=== PATIENT | female | born 1955 | race Caucasian/White ===

== ENCOUNTER → 2016-08-29 | Outpatient (CLI) | payer OTHER ==
[~2016-08-29] MED LIST: FEXOFENADINE; HCTZ; LRT5 PO; SIMVASTIN
[2016-08-29 09:45] LABS: ESTIMATED AVERAGE GLUCOSE 117 mg/dl; HA1C FLAG Normal (Normal)
[2016-08-29 09:46] LABS: BLOOD UREA NITROGEN 24 mg/dl (7-18); BUN/CREATININE RATIO 30.6 (10-20); CALCIUM 9.3 mg/dl (8.5-10.1); CARBON DIOXIDE 29 mmol/L (21-32); CHLORIDE 105 mmol/L (98-107); CHOLESTEROL 176 mg/dl (0-200); CREATININE 0.78 mg/dl (0.60-1.20); GLUCOSE 102 mg/dl (70-99); POTASSIUM 3.9 mmol/L (3.5-5.1); SODIUM 143 mmol/L (136-145); TRIGLYCERIDES 99 mg/dl (0-150); VERY LOW DENSITY LIPOPROT CALC 20 mg/dl
[2016-08-29 09:56] LABS: CHOLESTEROL/HDL RATIO 2.6; HDL CHOLESTEROL 69 mg/dl; LDL CHOLESTEROL CALCULATED 87 mg/dl
== END | disposition home or self-care (01) ==
LOC: C.LAB 06:28
PROVIDERS: ATTEND Family Medicine
DX: E03.9 Hypothyroidism, unspecified (principal); J30.9 Allergic rhinitis, unspecified; I10 Essential (primary) hypertension; R73.01 Impaired fasting glucose; E78.2 Mixed hyperlipidemia

== ENCOUNTER → 2017-03-28 | Outpatient (CLI) | payer OTHER ==
[2017-03-28 12:37] LABS: BLOOD UREA NITROGEN 23 mg/dl (7-18); BUN/CREATININE RATIO 28.9 (10-20); CALCIUM 8.9 mg/dl (8.5-10.1); CARBON DIOXIDE 29 mmol/L (21-32); CHLORIDE 108 mmol/L (98-107); CREATININE 0.79 mg/dl (0.60-1.20); GLUCOSE 92 mg/dl (70-99); SODIUM 143 mmol/L (136-145)
[2017-03-28 12:38] LABS: ESTIMATED AVERAGE GLUCOSE 123 mg/dl; HA1C FLAG Normal (Normal)
== END | disposition home or self-care (01) ==
LOC: C.LABBFT 07:16
PROVIDERS: ATTEND Family Medicine
DX: I10 Essential (primary) hypertension (principal); E78.2 Mixed hyperlipidemia; R73.01 Impaired fasting glucose

== ENCOUNTER → 2017-04-18 | Outpatient (CLI) | payer OTHER ==
--- NOTE | 2017-04-19 13:53 | MAMMOGRAPHY REPORT ---
BILATERAL DIGITAL SCREENING MAMMOGRAM TOMOSYNTHESIS WITH CAD: 04/18/2017 CLINICAL HISTORY: Routine screening. Patient has no complaints. TECHNIQUE: Breast tomosynthesis in addition to standard 2D mammography was performed. Current study was also evaluated with a Computer Aided Detection (CAD) system. COMPARISON: Comparison is made to exams dated: 06/02/2015 mammogram, 05/14/2013 mammogram, 2 mammogram, 05/04/2011 mammogram, 03/31/2010 mammogram - [facility], and 01/06/2009. BREAST COMPOSITION: There are scattered areas of fibroglandular density in both breasts. FINDINGS: There is an 8 mm focal asymmetry in the upper outer posterior right breast, for which chadd tional spot compression tomosynthesis views and possible ultrasound are recommended. No other suspicious mass, architectural distortion or cluster of microcalcifications is seen bilatera lly. IMPRESSION: ACR BI-RADS CATEGORY 0: INCOMPLETE EVALUATION: NEED ADDITIONAL IMAGING EVALUATION The 8 mm focal asymmetry in the upper outer posterior right breast needs additional evaluation. The patient will be called to schedule an appointment. Approximately 10% of breast cancers are not detected with mammography. A negative mammographic report should not delay biopsy if a clinically suggestive mass is present. Geraldine Quiroz M.D. ay/:04/18/2017 15:07:53 Mail Weigher: Jaida Vincent, [facility] letter sent: Addl Imaging 0 BI-RADS Code: ACR BI-RADS Category 0: Incomplete Evaluation: Need Additional Imaging Evaluation
== END | disposition home or self-care (01) ==
LOC: C.MAMM 14:21
PROVIDERS: ATTEND Obstetrics & Gynecology
DX: Z12.31 Encounter for screening mammogram for malignant neoplasm of breast (principal); N64.89 Other specified disorders of breast

== ENCOUNTER → 2017-04-26 | Outpatient (CLI) | payer OTHER ==
--- NOTE | 2017-04-26 13:54 | MAMMOGRAPHY REPORT ---
UNILATERAL RIGHT DIGITAL DIAGNOSTIC MAMMOGRAM TOMOSYNTHESIS AND TARGETED RIGHT ULTRASOUND: 04/26/2017 CLINICAL HISTORY: Callback from screening mammogram for right breast asymmetry. TECHNIQUE: Breast tomosynthesis in addition to standard 2D mammography was performed. Spot compress ion right CC and MLO 2-D and tomosynthesis images were obtained. COMPARISON: Comparison is made to exams dated: 04/18/2017 mammogram, 06/02/2015 mammogram, 05/14/2013 mammogram, 05/07/2012 mammogram, 05/04/2011 mammogram, and 03/31/2010 mammogram - [facility]. BREAST COMPOSITION: There are scattered areas of fibroglandular density in the right breast. FINDINGS: Spot compression views demonstrate an oval partially circumscribed and partially obscured 1 0 mm mass in the right upper outer quadrant. When reviewing prior mammograms, the mass may not be si gnificantly changed compared to the prior March 2010 exam on the MLO view, although the mass is b est seen on the tomosynthesis images which makes it difficult to make an accurate comparison between the current and prior exams. Targeted ultrasound was performed of the right upper outer quadrant of the region of the mammographic mass. In the right breast at 9:00, in 9 cm from the nipple, there is a bilobed hypoechoic solid-alexandre earing mass which measures 10 mm in greatest extent. An echogenic fatty hilum and central internal v ascularity is not clearly evident to suggest an intramammary lymph node. This corresponds with the m ammographic mass which is likely stable to prior exams. Also noted in the right breast at 9:00, 10 c m from the nipple is a hypoechoic mass with non-circumscribed margins measuring 4 x 3 x 4 mm. No susu ar mammographic correlate is evident, therefore, this mass is newly visualized on imaging. Given maureen t the smaller right 9:00 breast mass is newly visualized and the margins are not circumscribed, it is indeterminate and ultrasound-guided core needle biopsy is recommended for further evaluation. At th e time of this biopsy, biopsy of the larger 9:00 mass can also be performed. IMPRESSION: ACR BI-RADS CATEGORY 4: SUSPICIOUS, TARGETED ULTRASOUND ACR BI-RADS CATEGORY 4: SUSPICIO US 1. Hypoechoic 10 mm mass in the right 9:00 breast on ultrasound, which corresponds with the partiall y circumscribed mammographic mass. The mass may have been present dating back to the 2009 exam altho ugh it is difficult to confirm stability given that it is best visualized on the tomosynthesis images . Recommend ultrasound-guided core needle biopsy for further evaluation. 2. Newly visualized hypoechoic non-circumscribed 4 mm mass in the right breast at 9:00. The mass is indeterminate and ultrasound guided core needle biopsy is recommended for further evaluation. A phone call was made to the physician's office to confirm faxed results were received. The patient has been verbally notified of the results. She tentatively scheduled the biopsies before leaving the department. Approximately 10% of breast cancers are not detected with mammography. A negative mammographic report should not delay biopsy if a clinically suggestive mass is present. Alondra Snow M.D. ah/:04/26/2017 11:53:54 Charter Pilot: Jaida Vincent, [facility] letter sent: Abnormal 4/5 BI-RADS Code: ACR BI-RADS Category 4: Suspicious Ultrasound BI-RADS: ACR BI-RADS Category 4: Suspici ous
== END | disposition home or self-care (01) ==
LOC: C.MAMM 10:39
PROVIDERS: ATTEND Obstetrics & Gynecology
DX: N63.10 Unspecified lump in the right breast, unspecified quadrant (principal); N64.89 Other specified disorders of breast

== ENCOUNTER → 2017-05-07 | Outpatient (CLI) | payer OTHER ==
--- NOTE | 2017-05-07 08:48 | Discharge Instructions ---
Discharge Instructions Procedure Procedure Date: May 07, 2017. Reason for visit: Right Masses. Discharge Discharge Date: May 07, 2017. Discharge Diagnosis: post right breast ultrasound guided core biopsy Instructions Activity Recommendations: Additional Limitations (see below) Return to School/Work: no limitations Recommended Home Diet: No Limitations Provider Instructions: ACTIVITY RECOMMENDATIONS: * No lifting, pushing, pulling or exercising the affected side for three days. RETURN TO SCHOOL/WORK: * You may return to work/school after the procedure, but do not perform any strenuous activities for 24 to 48 hours. MEDICATIONS: * Tylenol (two 325 mg) every four to six hours if needed for mild pain (if not allergic to Tylenol). DIET: * Resume previous diet. SPECIAL CARE INSTRUCTIONS: * Keep biopsy site dry for 24 hours. May shower after 24 hours, but do not soak (bathe) incision. * May remove Tegaderm (plastic patch) tomorrow AFTER showering. * Leave the steri-strips on for one week. Allow the steri-strips to fall off by themselves. If not off after one week, you may remove them. You may place a Bandaid crosswise over the strips, if desired. * Apply ice 10 minutes on and 10 minutes off as needed. * Wear a bra at bedtime to sleep more comfortably for 2-3 days. * Your referring physician should have the results after approximately 5 to 7 business days. * Call for unusual bleeding, fever, drainage, etc or if you have any questions call [phone] during normal business hours or after hours call Dr Quiroz, . FOLLOW UP VISIT: Follow-up with Referring Physician as scheduled. Allergies Coded Allergies: No Known Allergies (Verified Allergy, Unknown, 07/02/04) Uncoded Allergies: N (Allergy, Unknown, 08/28/02) NKA (Allergy, Unknown, 08/28/02) Laura Patton Recommendations: Call your doctor if: * Temperature above 101 degrees * Pain not relieved by pain medicine ordered * There is increased drainage or redness from any incision * You have any unanswered questions or concerns. Your Doctors Instructions noted above were prepared by provider Geraldine Quiroz. Patient Signature Section: Patient Instructions Signature Page Nara Johnson Patient (or Guardian) Signature/Date: I have read and understand the instructions given to me by my caregivers. Caregiver/RN/Doctor Signature/Date: The above-named patient and/or guardian has received patient instructions on this date. + Original Patient Signature Page (only) stays with chart. Please make copy for patient.
--- NOTE | 2017-05-07 13:36 | MAMMOGRAPHY REPORT ---
UNILATERAL RIGHT DIGITAL DIAGNOSTIC MAMMOGRAM TOMOSYNTHESIS: 05/07/2017 CLINICAL HISTORY: Status post ultrasound-guided core biopsy of a bilobed mass in the 9:00 right breas t, 9 cm from the nipple. Please refer the report from right breast ultrasound guided core biopsy performed at the same time fo r full detail. IMPRESSION: POST PROCEDURE IMAGING FOR MARKER PLACEMENT Please refer the report from right breast ultrasound guided core biopsy performed at the same time fo r full detail. Approximately 10% of breast cancers are not detected with mammography. A negative mammographic report should not delay biopsy if a clinically suggestive mass is present. Geraldine Quiroz M.D. ay/:05/07/2017 08:58:26 Floorworker Lasting: Perla PITTS(R)(Allan), [facility] BI-RADS Code: Post Procedure Imaging For Marker Placement
--- NOTE | 2017-05-08 15:16 | MAMMOGRAPHY REPORT ---
ULTRASOUND GUIDED BIOPSY RIGHT BREAST: 05/07/2017 CLINICAL HISTORY: Indeterminate masses in the 9:00 right breast, 9 cm and 10 cm from the nipple, thou ght to correlate with a partially circumscribed 8 mm mammographic mass in the upper outer posterior r ight breast. Patient presents for ultrasound-guided core biopsy. COMPARISON: Comparison is made to exams dated: 04/26/2017 ultrasound, 04/26/2017 mammogram, 7 mammogram, 06/02/2015 mammogram, 05/14/2013 mammogram, and 05/07/2012 mammogram - [facility]. PATIENT CONSENT: The procedure, risks and benefits were discussed with the patient and informed conse nt was obtained both verbally and in writing. Specific risks to this procedure include: bleeding, in fection, puncture of adjacent structure, nontarget biopsy, sampling error, pain, metal allergy and me dication reaction. PROCEDURE DESCRIPTION: First repeat targeted ultrasound was performed in the 9:00 and 10:00 axes of t he right breast, 9 cm and 10 cm from the nipple to reevaluate the mass is identified on prior ultraso und. A bilobed hypoechoic solid-appearing mass is again seen in the 9:00 breast, 9 cm from the nippl e. This could represent a lymph node with undulating cortex. It is thought to correlate with the ma mmographic mass and ultrasound-guided core biopsy was performed. A second smaller mass in the 9:00 a xis, 10 cm from the nipple currently has the appearance of a morphologically normal intramammary lymp h node. Depending benign pathology results from the biopsy located 9 cm from the nipple, a short int erval follow-up targeted ultrasound is recommended. There were numerous other similar appearing morp hologically normal lymph nodes throughout the 9 and 10:00 axes of the right breast on the current tar geted ultrasound. A time out was performed and the right breast was agreed as the site of biopsy. The skin was prepped and draped in the usual sterile fashion. The bilobed solid 10 mm mass in the 9:00 breast/axillary hamilton l was chosen as the target for biopsy. Subcutaneous and intraparenchymal 1% buffered lidocaine, with and without epinephrine, was administered as local anesthesia. A skin incision was made. Through the incision, 4 samples were taken with a 14 gauge Achieve biopsy device. A ribbon shaped metallic marke r was placed at the biopsy site. Hemostasis was achieved after manual compression. The patient tolera josy the procedure well and there was no immediate complication. The samples were sent to the patholo gy department in an appropriately labeled container. Postprocedure right cc and ML tomosynthesis images were obtained. A new ribbon-shaped biopsy marker clip is seen in the far superior right breast projecting over the pectoralis muscle on the MLO view. However, the clip is located more in the axillary tail/axilla region and does not correlate with the nodular mammographic asymmetry. Therefore repeat targeted ultrasound was performed while the patien t remained in the department throughout the superior breast to assess for any other possible mass whi ch may correlate with the mammographic asymmetry. Targeted ultrasound was performed throughout the superior right breast. However, no other discrete s olid or cystic mass was identified, which may correlate with the focal mammographic asymmetry. This could possibly represent an isoechoic fibroadenoma not identified on ultrasound. Further recommendat ions will be made once pathology results are available. IMPRESSION: ULTRASOUND GUIDED BIOPSY 1. Status post ultrasound-guided core biopsy of a bilobed mass in the 9:00 right breast, 9 cm from t he nipple, which could represent a lymph node with undulating cortex. 2. The biopsy marker clip does not align with the focal mammographic asymmetry in question, and no o ther sonographic correlate was identified with additional scanning performed throughout the superior breast today after the biopsy. Therefore, will await pathology results and further recommendations w ill be made once those results are available. 3. The patient will receive notification of the biopsy results from her referring physician. Geraldine Quiroz M.D. ay/:05/07/2017 16:02:47 Lithographing Machine Operator: Perla KABA)(Allan), [facility]
== END | disposition home or self-care (01) ==
LOC: C.MAMM 07:46
PROVIDERS: ATTEND Obstetrics & Gynecology
DX: N63.0 Unspecified lump in unspecified breast (principal)

== ENCOUNTER → 2017-07-12 | Outpatient (CLI) | payer OTHER ==
[2017-07-12 18:16] LABS: THYROID STIMULATING HORMONE 2.33 uIu/ml (0.300-4.500)
== END | disposition home or self-care (01) ==
LOC: C.LABBFT 12:39
PROVIDERS: ATTEND Family Medicine
DX: E03.9 Hypothyroidism, unspecified (principal)

== ENCOUNTER → 2017-09-19 | Outpatient (CLI) | payer OTHER ==
[2017-09-19 12:40] LABS: HEMOGLOBIN A1C 5.8 % (4.5-5.6)
[2017-09-19 12:46] LABS: BLOOD UREA NITROGEN 24 mg/dl (7-18); CARBON DIOXIDE 26 mmol/L (21-32); CHOLESTEROL 183 mg/dl (0-200); CREATININE 0.86 mg/dl (0.60-1.20); GLUCOSE 95 mg/dl (70-99); POTASSIUM 3.8 mmol/L (3.5-5.1); SODIUM 140 mmol/L (136-145)
[2017-09-19 12:57] LABS: LDL CHOLESTEROL CALCULATED 97 mg/dl
== END | disposition home or self-care (01) ==
LOC: C.LABBFT 07:33
PROVIDERS: ATTEND Family Medicine
DX: E03.9 Hypothyroidism, unspecified (principal); I10 Essential (primary) hypertension; E78.2 Mixed hyperlipidemia; R73.01 Impaired fasting glucose

== ENCOUNTER → 2017-11-05 | Outpatient (CLI) | payer OTHER ==
--- NOTE | 2017-11-06 07:40 | MAMMOGRAPHY REPORT ---
UNILATERAL RIGHT DIGITAL DIAGNOSTIC MAMMOGRAM TOMOSYNTHESIS WITH CAD: 11/05/2017 CLINICAL HISTORY: 62-year-old woman initially called back from screening mammography for an 8 mm foca l asymmetry in the upper outer posterior right breast on the 04/18/2017 screening mammogram. After fu rther workup and biopsy, the biopsy clip did not align with the asymmetry in question. She presents for follow-up, given that the asymmetry was likely present on numerous prior mammograms, suggesting b enignity. TECHNIQUE: Right breast tomosynthesis in addition to standard 2D mammography was performed. Current study was also evaluated with a Computer Aided Detection (CAD) system. COMPARISON: Comparison is made to exams dated: 05/07/2017 mammogram, 05/07/2017 ultrasound biopsy, 1 ultrasound, 04/26/2017 mammogram, 04/18/2017 mammogram, and 05/14/2013 mammogram - [facility]. BREAST COMPOSITION: There are scattered areas of fibroglandular density in the right breast. FINDINGS: There is a stable ribbon-shaped biopsy marker clip projecting over the right pectoralis mus susu on the MLO view, aligning with a lobulated yet morphologically normal-appearing lymph node. The focal asymmetry in the upper outer posterior right breast is less prominent on the current MLO view b ut still identified on tomosynthesis slice 49/106. The asymmetry is also less prominent in the CC pr ojection. When comparing back to prior available mammograms, the appearance is similar dating back t o at least 03/31/2010, suggesting benignity without length of stability and therefore no further close follow-up is needed at this time. Recommend return to annual screening mammography schedule. No ot her new suspicious masses, asymmetries, areas of architectural distortion or microcalcifications are identified in the right breast. IMPRESSION: ACR BI-RADS CATEGORY 2: BENIGN There are stable postbiopsy changes in the right axilla and an 8 mm focal asymmetry in the upper oute r posterior right breast is less prominent on the current exam with a similar appearance on all avail able mammograms dating back to at least 03/31/2010, suggesting benignity. No further close follow-up is needed at this time. Recommend return to annual screening mammography schedule, due in May 04. These results and recommendations were discussed with the patient at the time of the exam. Approximately 10% of breast cancers are not detected with mammography. A negative mammographic report should not delay biopsy if a clinically suggestive mass is present. Geraldine Quiroz M.D. ay/:11/05/2017 10:09:34 Metal Handler: Perla KABA)(Allan), [facility] letter sent: Normal 1/2 BI-RADS Code: ACR BI-RADS Category 2: Benign
== END | disposition home or self-care (01) ==
LOC: C.MAMM 08:56
PROVIDERS: ATTEND Obstetrics & Gynecology
DX: N64.89 Other specified disorders of breast (principal)